=== PATIENT | female | born 1980 | race American Indian/Alaskan Native ===

== ENCOUNTER 2017-11-03 20:11 | Emergency (ER) | payer MEDICAID ==
[2017-11-03 20:47] VITALS: BP 144/98; PULSE 64; RESP 16; TEMP 98.2; O2SAT 99
--- NOTE | 2017-11-03 22:38 | ED PDOC ---
HPI: Dental Pain/Injury Time Seen by Provider: 11/03/17 20:52 Chief Complaint (Nursing): Dental Pain History Per: Patient Additional Complaint(s): Pt. states yesterday she developed L upper toothache which became worse this morning. Pt. states she contacted her dentist who advised her to come to ED to obtain an Rx for antibiotic. Reports that she has a scheduled appointment with her dentist next week. Further states pain is controlled with Motrin at home. Denies trauma, fever, numbness, tingling, bleeding. Of note, pt. is requesting a test. Denies vaginal bleeding, abd pain, pelvic pain. LMP: 10/26/2017. Past Medical History Reviewed: Historical Data, Nursing Documentation, Vital Signs Vital Signs: Last Vital Signs Temp 98.2 F 11/03/17 20:44 Pulse 64 11/03/17 20:44 Resp 16 11/03/17 20:44 BP 144/98 H 11/03/17 20:44 Pulse Ox 99 11/03/17 20:44 - Medical History PMH: Anemia - Surgical History Surgical History: (x3) - Family History Family History: States: No Known Family Hx - Home Medications Home Medications: Ambulatory Orders Medication Instructions Recorded Naproxen [Naprosyn] 500 mg PO Q12H #20 tab 09/18/15 Oseltamivir [Tamiflu] 75 mg PO BID #10 cap 09/18/15 Dicyclomine [Bentyl] 20 mg PO Q12 PRN #20 tab 10/09/15 Ondansetron ODT [Zofran ODT] 4 mg PO Q6H PRN #16 odt 10/09/15 Amoxicillin/Clavulanate [Augmentin 1 tab PO BID #20 tab 05/19/17 875 MG-125 MG] Amoxicillin/Clavulanate [Augmentin 1 tab PO BID #20 tab 11/03/17 500 MG-125 MG] - Allergies Allergies/Adverse Reactions: Allergies Allergy/AdvReac Type Severity Reaction Status Date / Time No Known Allergies Allergy Verified 09/18/15 17:54 Review of Systems ROS Statement: Except As Marked, All Systems Reviewed And Found Negative Physical Exam - Physical Exam Appears: Positive for: Well, Non-toxic, No Acute Distress Skin: Positive for: Normal Color, Warm. Negative for: Rash Eye Exam: Positive for: Normal appearance ENT: Positive for: Other (L maxillary lateral incisor tenderness with minimal gingival swelling ). Negative for: Sinus Pain/Drainage Neurologic/Psych: Positive for: Alert, Oriented, Other (no facial asymmetry ). Negative for: Aphasia, Facial Droop - Laboratory Results Urine POC: Negative - ECG O2 Sat by Pulse Oximetry: 99 Disposition - Clinical Impression Clinical Impression: Dental abscess - Patient ED Disposition Is Patient to be Admitted: No - Disposition Referrals: [facility] [Outside] Disposition: Routine/Home Disposition Time: 22:15 Condition: STABLE Additional Instructions: Follow up with your dentist as scheduled. Return to ED immediately if symptoms worsen. Prescriptions: Amoxicillin/Clavulanate [Augmentin 500 MG-125 MG] 1 tab PO BID #20 tab Instructions: Tooth Abscess (DC) Forms: [employer] (Pashto) Print Language: VENEZUEL[place]
== END 2017-11-03 22:26 | disposition home or self-care (01) ==
LOC: H.ER 20:11
DX: K04.7 Periapical abscess without sinus (principal)

== ENCOUNTER 2017-11-18 20:11 | Emergency (ER) | payer MEDICAID ==
[2017-11-18 20:39] VITALS: BP 140/91; PULSE 70; RESP 18; TEMP 98.6; O2SAT 100
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
== END 2017-11-18 21:30 | disposition home or self-care (01) ==
LOC: H.ER 20:11
DX: S09.90XA Unspecified injury of head, initial encounter (principal); S09.93XA Unspecified injury of face, initial encounter; Y04.0XXA Assault by unarmed brawl or fight, initial encounter; Y92.89 Other specified places as the place of occurrence of the external cause

== ENCOUNTER 2018-07-23 10:15 | Emergency (ER) | payer MEDICAID ==
[2018-07-23 10:27] VITALS: BMI 24.5
[2018-07-23 10:50] VITALS: O2SAT 98
[2018-07-23] MEDS ORDERED: Tmp-Smz 800 mg-160 mg DS Tab PO STA (12:51)
[2018-07-23] MEDS ORDERED: Tmp-Smz 800 mg-160 mg DS Tab ONE (13:01)
--- NOTE | 2018-07-23 13:05 | ED PDOC ---
HPI: Skin/Bite Injury Time Seen by Provider: 07/23/18 11:34 Chief Complaint (Nursing): Female Genitourinary Chief Complaint (Provider): Groin bump History Per: Patient History/Exam Limitations: no limitations Additional Complaint(s): Pt reports bump to L groin X 1 month, getting bigger, did not take medication for pain. Denies fever, discharge. Past Medical History Reviewed: Nursing Documentation, Vital Signs Vital Signs: Last Vital Signs Temp 97 F L 07/23/18 10:47 Pulse 74 07/23/18 10:47 Resp 20 07/23/18 10:47 BP 120/70 07/23/18 10:47 Pulse Ox 98 07/23/18 10:47 - Medical History PMH: Anemia - Surgical History Surgical History: (x3) - Family History Family History: States: Unknown Family Hx - Social History Current smoker - smoking cessation education provided: No Alcohol: None - Home Medications Home Medications: Ambulatory Orders Medication Instructions Recorded Naproxen [Naprosyn] 500 mg PO Q12H #20 tab 09/18/15 Oseltamivir Cap [Tamiflu] 75 mg PO BID #10 cap 09/18/15 Dicyclomine [Bentyl] 20 mg PO Q12 PRN #20 tab 10/09/15 Ondansetron ODT [Zofran ODT] 4 mg PO Q6H PRN #16 odt 10/09/15 Amoxicillin/Clavulanate [Augmentin 1 tab PO BID #20 tab 05/19/17 875 MG-125 MG] Amoxicillin/Clavulanate [Augmentin 1 tab PO BID #20 tab 11/03/17 500 MG-125 MG] Ibuprofen [Motrin] 600 mg PO Q6H PRN #20 tab 07/23/18 Sulfamethoxazole/Trimethoprim 1 tab PO BID #13 tab 07/23/18 [Bactrim DS 800 mg-160 mg] - Allergies Allergies/Adverse Reactions: Allergies Allergy/AdvReac Type Severity Reaction Status Date / Time No Known Allergies Allergy Verified 11/18/17 20:32 Review of Systems Constitutional: Negative for: Fever, Chills Skin: Negative for: Rash, Lesions Physical Exam - Reviewed Nursing Documentation Reviewed: Yes Vital Signs Reviewed: Yes - Physical Exam Appears: Positive for: Well, No Acute Distress Skin: Positive for: Normal Color, Warm, Dry Pelvic Exam: Positive for: Other (([employer]: Dahlia Fajardo RN): Tender area L groin, no vesicles, no discharge, nonfluctuant) Neurologic/Psych: Positive for: Alert, Oriented - ECG O2 Sat by Pulse Oximetry: 98 Medical Decision Making Medical Decision Makin yo female with groin cellulitis. - Bactrim DS - Motrin Disposition - Clinical Impression Clinical Impression: Cellulitis of groin, left - Disposition Disposition: Routine/Home Disposition Time: 13:07 Condition: STABLE Additional Instructions: FOLLOW-UP WITH PMD WITHIN 2 DAYS FOR REEVALUATION. Prescriptions: Ibuprofen [Motrin] 600 mg PO Q6H PRN #20 tab PRN Reason: Pain, Moderate (4-7) Sulfamethoxazole/Trimethoprim [Bactrim DS 800 mg-160 mg] 1 tab PO BID #13 tab Instructions: Cellulitis and Erysipelas (Skin Infections) Forms: [facility] ([place])
[2018-07-23 13:24] VITALS: BP 128/78; PULSE 78; RESP 19; TEMP 97.6
== END 2018-07-23 13:24 | disposition home or self-care (01) ==
LOC: H.ER 10:15
DX: L03.314 Cellulitis of groin (principal)